=== PATIENT | female | born 1975 ===

== ENCOUNTER 2020-08-27 12:35 | Emergency (ER) | payer BC, SELFPAY ==
[2020-08-27] VITALS (30 sets, daily range): BP systolic 108–131; BP diastolic 70–95; PULSE 57–77; RESP 11–28; TEMP 37.1; O2SAT 98–100
[2020-08-27] MEDS: Ketorolac 30 MG/ML VIAL IVP (13:00)
[2020-08-27] MEDS: fentaNYL 100 MCG/2 ML VIAL IVP (13:00)
--- NOTE | 2020-08-27 13:00 | DI.RAD_ITS ---
EXAM: XR SHOULDER LT COMPLETE 2+V CLINICAL HISTORY: injury. TECHNIQUE: 2D digital imaging was performed. COMPARISON: No exams were available for comparison FINDINGS: BONES: No acute fracture is present. No bony destructive lesion is seen. JOINTS: There is a left shoulder anterior dislocation. SOFT TISSUE: Normal. IMPRESSION: Anterior dislocation of the left shoulder. No fracture is identified. DATA REPOSITORY: RADIATION DOSE DELIVERED:
--- NOTE | 2020-08-27 13:01 | ED.GENADUL_ITS ---
Discharge Plan Disposition Patient Disposition: HOME Condition: Stable Discharge Details Clinical Impression: Closed dislocation of left shoulder Primary Care Provider: Unknown,Unknown ED Provider: Alfredo Ramos Home Meds and New Rx's Prescriptions: Continued norethindrone (contraceptive) 0.35 mg Tablet 0.35 mg PO DAILY RF: 0 Discharge Instructions Instructions: Shoulder Dislocation (ED), Shoulder Immobilizer (ED) Additional Instructions: Please take ibuprofen over the counter. Take 600mg by mouth every 6 hours as needed for pain. Please take acetaminophen (tylenol) - 650mg every 6 hours by mouth as needed for pain. Use left shoulder sling to protect her shoulder and allow it to heal. Please follow-up with your product support specialist. Call on Saturday to arrange fol low-up appointment. Please contact your primary care physician to arrange follow-up. Return to the ER for any worsening or new concerning symptoms. Discharge Data Discharge Date/Time-TO BE ENTERED AT DEPARTURE: 08/27/20 15:00 Medical Decision Making 1312??45-year-old female here visiting from [place], arrived yesterday, fell while skiing and injured her left shoulder. She has deformity consistent with shoulder dislocation. Neurovascular intact distally. No head injury and no neck pain or tenderness. Lungs clear to auscultation and normal heart sounds. Abdominal exam benign. Discussed treatment options with the patient and she would prefer to proceed with procedural sedation for shoulder joint reduction. Patient is in significant discomfort I will give Toradol and fentanyl IV at this time. Plan for sedation with propofol for joint reduction. 14:10 --patient provided verbal informed consent to proceed with procedural sedation and left shoulder dislocation relocation. Patient was sedated without complication and joint successfully reduced. Patient remained hemodynamically stable and had normal oxygenation and end-tidal CO2 during entire procedure. HPI General Mode of arrival: ambulatory . Date/Time Provider Initiated Documentation: 08/27/20 12:42 . Limitations to Documentation: no limitations . Information obtained by: patient . HPI Narrative: 45-year-old female presents with chief complaint of left shoulder pain. Patient notes that she was skiing and fell and landed on her left shoulder. This occurred around 11 AM. She has had persistent constant severe pain since the fall. She notes any movement of the left arm worsens pain. No associated numbness or tingling. No other injury. She not hit her head and has no neck or back pain. No chest pain or abdominal pain. Related Data Home Medications Medication Instructions Recorded Confirmed norethindrone (contraceptive) 0.35 mg PO DAILY 08/27/20 08/27/20 Allergies Allergy/AdvReac Type Severity Reaction Status Date / Time Penicillins Allergy Unverified 08/27/20 12:55 General Stated Complaint: Orthopedic ALBERT: 2 Review of Systems All systems reviewed & are unremarkable except as noted in HPI and below Cardiovascular Cardiovascular: Denies dyspnea Respiratory Respiratory: Denies dyspnea Musculoskeletal Musculoskeletal: Reports as per HPI [facility] Social History Smoking/Tobacco Use Status: Never Smoking risk assessment performed?: Yes Alcohol Intake: current Alcohol Intake frequency: a few times a week Alcohol type: beer Drug use: Never Substance use type: does not use Do you feel safe at home: Yes Do you feel safe in your relationship?: Yes Exam Const General: cooperative and uncomfortable HENMT Head: normocephalic and atraumatic Mouth: moist mucous membranes Eyes EOM: EOM intact bilaterally Neck Neck: trachea midline and supple Resp Auscultation: clear to auscultation bilaterally, no rales, no rhonchi and no wheezes Cardio Rate: regular rate and not tachycardic Rhythm: regular rhythm GI Palpation: soft, not firm, no guarding, no masses, not rigid and nontender Back/Spine/Pelvis Cervical Spine: cervical ROM normal, No cervical spinal tenderness and No step off deformity Thoracic/Lumbar Spine: No thoracic spinal tenderness and No lumbar spinal tenderness Skin General skin exam: no rashes or lesions noted Neuro General: patient alert, patient awake, patient oriented x3 and tone normal Extrem Left upper extremity: shoulder/upper arm Details: tenderness, abnormal ROM and deformity and hand Details: neuromotor exam normal, neurosensory exam normal and vascular exam Details: radial pulse present Details: 2+ Psych Appearance: grossly normal Mental Status: mental status grossly normal Speech and Movement: speech and movement normal Course Vital Signs Vital signs: Vital Signs Temperature 37.1 C 08/27/20 12:51 Pulse 66 08/27/20 12:51 Respiratory Rate 20 08/27/20 12:51 Blood Pressure 108/74 08/27/20 12:51 Pulse Oximetry 99 08/27/20 12:51 Temperature 37.1 C 08/27/20 12:51 Temperature Source Temporal Artery Scan 08/27/20 12:51 Pulse 66 08/27/20 12:51 Respiratory Rate 20 08/27/20 12:51 Respiratory Effort Non-Labored 08/27/20 12:57 Blood Pressure 108/74 08/27/20 12:51 Blood Pressure Position Sitting 08/27/20 12:51 Pulse Oximetry 99 08/27/20 12:51 Oxygen Delivery Method Room Air 08/27/20 12:51 Oxygen Flow Rate 0 08/27/20 12:51 Pain Level 7 08/27/20 12:51 Procedures Procedural Sedation Indication: fracture/dislocation reduction Presedation Evaluation: Healthy ASA Class: I Time of Last PO Intake: 08:00 Preparation: cardiac monitor technician applied, pulse oximeter, capnometry used, supplemental O2 applied, reversal agents at bedside and suction/airway equipment at bedside IV Propofol dose (mg): 75 Patient Tolerated Procedure: well Complications: none Additional Comments: Patient tolerated well without complication and remained hemodynamically stable for the entire procedure.
--- NOTE | 2020-08-27 13:30 | DI.RAD_ITS ---
EXAM: XR SHOULDER LT COMP POST REDUC CLINICAL HISTORY: post reduction. TECHNIQUE: 2D digital imaging was performed. COMPARISON: CR,XR XR SHOULDER LT COMPLETE 2+V from 08/27/2020 FINDINGS: BONES: No acute fracture is present. No bony destructive lesion is seen. JOINTS: No dislocation present. SOFT TISSUE: Normal. IMPRESSION: No acute fracture or dislocation of the left shoulder following reduction. DATA REPOSITORY: RADIATION DOSE DELIVERED:
[2020-08-27] MEDS: Propofol 200 MG/20 ML VIAL 50 MG IVP ×2 (13:36→13:38)
--- NOTE | 2020-08-27 13:48 | DI.VRAD_ITS ---
PROCEDURE INFORMATION: Exam: XR Left Shoulder Exam date and time: 08/27/2020 1:24 PM Age: 45 years old Clinical indication: Other: Skiing injury TECHNIQUE: Imaging protocol: XR Left shoulder. Views: 2 or more views. COMPARISON: No relevant prior studies available. FINDINGS: Bones/joints: There is inferior dislocation of the humeral head relative to the glenoid. No definite fracture deformity. The AC joint is maintained. The underlying ribs are intact. The serpiginous lucency through the bony glenoid does not seem to violate the cortices with confidence. Soft tissues: No calcific tendinitis. IMPRESSION: Dislocation. Dictated and Authenticated by: Crow Bowie MD. Ordering:KALLIE Fuentes MD
--- NOTE | 2020-08-27 13:53 | W.ED.PROC ---
Procedures Orthopedic Joint Reduction Joint #1: Time Out Performed: Yes Side: left Joint Reduction Location: shoulder Analgesia: procedural sedation Shoulder Technique Used (if applicable): external rotation Post-reduction neuro exam: intact Post-reduction vascular: intact Post Reduction X-Ray Obtained: Yes Post Reduction X-Ray Results: reduced Splint Applied: Yes Patient Tolerated Procedure: well Additional Comments: n/v intact pre and post procedure
--- NOTE | 2020-08-27 14:11 | RESPIRATORY ---
08/27/20- Pt here for a Left shoulder reduction after a fall while skiing. BVM & Suction set up at bedside. 1332 Pre- 74 HR, 100%, 24 RR, 31 ETCO2 31mmhg, 160/90 on 2 LPM ETCO2 NC. 1344 65 HR, 100%, 22 HR, ETCO2 31mmhg, 118/75 on 2 LPM ETCO2 NC. 1350 Post 64 HR, 100%, 18 RR, ETCO2 33mm hg , 120/87. Pt is awake, alert and conversing .
--- NOTE | 2020-08-27 14:18 | DI.VRAD_ITS ---
PROCEDURE INFORMATION: Exam: XR Left Shoulder Exam date and time: 08/27/2020 1:47 PM Age: 45 years old Clinical indication: Other: Post reduction TECHNIQUE: Imaging protocol: XR Left shoulder. Views: 2 or more views. COMPARISON: CR XR SHOULDER LT COMPLETE 2+V 08/27/2020 1:03 PM FINDINGS: Bones/joints: Interval reduction of the dislocation. No acute fracture. Limited degenerative changes at the AC joint. Soft tissues: Normal. IMPRESSION: Post reduction study. Dictated and Authenticated by: Crow Bowie MD. Ordering:NINFA Murcia MD
== END 2020-08-27 15:00 | disposition home or self-care (01) ==
PROVIDERS: Emergency Provider Student in an Organized Health Care Education/Training Program
DX: S43.015A Anterior dislocation of left humerus, initial encounter (principal); V00.321A Fall from snow-skis, initial encounter; Y93.23 Activity, snow (alpine) (downhill) skiing, snowboarding, sledding, tobogganing and snow tubing
CPT/HCPCS: 23650; 73030; 96374; 96375; J1885; J2704; J3010

== ENCOUNTER 2021-09-24 11:03 | Emergency (ER) | payer BC, SELFPAY ==
[2021-09-24 11:15] VITALS: BP 91/49; PULSE 66; RESP 20; TEMP 36.6; O2SAT 100
--- NOTE | 2021-09-24 11:15 | DI.RAD_ITS ---
Exam(s) XR SHOULDER LT COMPLETE 2+V EXAM: XR SHOULDER LT COMPLETE 2+V CLINICAL HISTORY: fall/ possible dislocation. TECHNIQUE: 2D digital imaging was performed of the left shoulder. Three images were obtained. AP a nd Y views were obtained. COMPARISON: CR,XR XR SHOULDER LT COMPLETE 2+V from 08/27/2020 FINDINGS: BONES: No acute fracture is present. No bony destructive lesion is seen. JOINTS: There is an anterior left shoulder dislocation. SOFT TISSUE: Normal. IMPRESSION: Anterior dislocation of the left shoulder. DATA REPOSITORY: RADIATION DOSE DELIVERED:
[2021-09-24] MEDS: Ondansetron 4 MG/2 ML VIAL IVP (11:37)
[2021-09-24] MEDS: Normal Saline 500 ML IV (11:37)
[2021-09-24] MEDS: HYDROmorphone 2 MG/ML VIAL 0.5 MG IVP (11:45)
--- NOTE | 2021-09-24 11:58 | DI.VRAD_ITS ---
PROCEDURE INFORMATION: Exam: XR Left Shoulder Exam date and time: 09/24/2021 11:30 AM Age: 46 years old Clinical indication: Other: Fall, possible dislocation TECHNIQUE: Imaging protocol: XR Left shoulder. Views: 2 or more views. COMPARISON: CR XR SHOULDER LT COMP POST REDUC 08/27/2020 1:42 PM FINDINGS: Bones/joints: Anterior inferior dislocation of the left shoulder. No obvious fracture. Soft tissues: Normal. IMPRESSION: Anterior inferior dislocation of the left shoulder. Dictated and Authenticated by: Jose Cox MD. Ordering:AMERICA Bhakta MD
--- NOTE | 2021-09-24 12:15 | DI.RAD_ITS ---
Exam(s) XR SHOULDER LT COMPLETE 2+V EXAM: XR SHOULDER LT COMPLETE 2+V CLINICAL HISTORY: post reduction. TECHNIQUE: 2D digital imaging was performed of the left shoulder. Four images were obtained. AP, G rashey, Y-view and axillary views were obtained. COMPARISON: CR,XR XR SHOULDER LT COMPLETE 2+V from 09/24/2021 FINDINGS: BONES: No acute fracture is present. No bony destructive lesion is seen. JOINTS: No dislocation present. SOFT TISSUE: Normal. IMPRESSION: Unremarkable radiographs of the left shoulder. Successful reduction of the previous left shoulder dis location. DATA REPOSITORY: RADIATION DOSE DELIVERED:
--- NOTE | 2021-09-24 13:00 | DI.VRAD_ITS ---
PROCEDURE INFORMATION: Exam: XR Left Shoulder Exam date and time: 09/24/2021 12:21 PM Age: 46 years old Clinical indication: Other: Shoulder dislocation, post reduction images TECHNIQUE: Imaging protocol: XR Left shoulder. Views: 2 or more views. COMPARISON: CR XR SHOULDER LT COMPLETE 2+V 09/24/2021 11:32 AM FINDINGS: Bones/joints: Normal. Soft tissues: Normal. IMPRESSION: No acute findings. Dictated and Authenticated by: Jose Cox MD. Ordering:AMERICA Bhakta MD
--- NOTE | 2021-09-24 13:13 | ED.GENADUL_ITS ---
Discharge Plan Disposition Patient Disposition: HOME Condition: Improving Discharge Details Clinical Impression: Anterior dislocation of left shoulder Primary Care Provider: Unknown,Unknown ED Provider: Yony Alberts Home Meds and New Rx's Prescriptions: Continued norethindrone (contraceptive) 0.35 mg Tablet 0.35 mg PO DAILY 0RF Discharge Instructions Instructions: Shoulder Dislocation (ED) Additional Instructions: You may take [id number] pain medication as needed and keep arm in sling preferably until able to follow-up with orthopedics unless this is greater than 4 days. If you develop any new or worsening symptoms or have further concerns feel free to return to the emergency department for reassessment. Discharge Data Discharge Date/Time-TO BE ENTERED AT DEPARTURE: 09/24/21 13:23 Medical Decision Making Patient presenting to the emergency department with chief complaint of fall while skiing dislocating left shoulder. Patient has dislocated left shoulder previously due to similar type injury. Physical exam shows an obvious dislocation of the left shoulder which on physical exam appears anterior. Patient given analgesic. imaging was performed and shows no obvious fracture and confirm suspicion of anterior dislocation. Discussed different techniques with patient patient was agreeable to attempting fares technique initially due to no need of procedural sedation. This technique was performed and successfully reduced left shoulder(with radiographic confirmation) with patient having no complications and no significant pain during procedure was noted. Patient placed in shoulder immobilizer and recommended to follow-up with orthopedics when she returns home. After discussion of diagnosis and plan of care patient has no further needs, questions, or concerns and states clear understanding to return to the emergency department for any worsening symptoms. Medical Records Medical records reviewed: Yes I reviewed the patient's medical records. Imaging Data Radiologic Study: Attestation: I personally reviewed and interpreted this imaging study as follows: Imaging: X-Ray My impression: Anterior dislocation without obvious fracture HPI General Mode of arrival: ambulatory . Date/Time Provider Initiated Documentation: 09/24/21 11:06 . Limitations to Documentation: no limitations . Information obtained by: patient and old records reviewed . History of Present Illness 46 year old F presents to the emergency department with the chief complaint of ski fall and left shoulder dislocation , described as moderate and similar to prior episodes, with intensity rated at 8. Quality is described as sharp, and is localized to the left and upper extremity. Patient reports no radiation. Patient started experiencing this hour(s) (1) and it has been constant. improves with Immobilization improves symptom(s), Movement worsens symptoms . Patient notes no other symptoms.. Patient did receive the following treatments prior to arrival, none Related Data Home Medications Medication Instructions Recorded Confirmed norethindrone (contraceptive) 0.35 0.35 mg PO DAILY 08/27/20 09/24/21 mg tablet Allergies Allergy/AdvReac Type Severity Reaction Status Date / Time Penicillins Allergy Unverified 09/24/21 11:21 General Stated Complaint: Orthopedic ALBERT: 3 Review of Systems Cardiovascular Cardiovascular: Denies chest pain, Denies syncope and Denies dyspnea Respiratory Respiratory: Denies pain on inspiration and Denies dyspnea Musculoskeletal Musculoskeletal: Reports as per HPI, Reports limited range of motion, Denies numbness and Reports tingling Integumentary/Breasts Skin/Breast: Denies rash, Denies sores and Denies wounds Neurologic Neurologic: Denies syncope, Denies numbness and Reports tingling PFSH All Active Problems (Updated 09/24/21 @ 13:13 by Yony Alberts NP) Anterior dislocation of left shoulder (Acute) Social History Smoking/Tobacco Use Status: Never Smoking risk assessment performed?: Yes Alcohol Intake: current Alcohol Intake frequency: a few times a week Alcohol type: beer Drug use: Never Substance use type: does not use Do you feel safe at home: Yes Do you feel safe in your relationship?: Yes Exam Const General: cooperative, no acute distress and not ill appearing Orientation: alert, awake and oriented x3 HENMT Mouth: moist mucous membranes Resp Effort & Inspection: normal respiratory effort, able to speak in complete sentences and no respiratory distress Auscultation: clear to auscultation bilaterally Cardio Rate: regular rate Rhythm: regular rhythm Heart Sounds: S1 normal and S2 normal Pulses: radial pulses present Skin General skin exam: no rashes or lesions noted Neuro General: patient alert, patient awake and patient oriented x3 Sensory Exam: no sensory deficits noted Extrem General: normal exam except as noted Left upper extremity: shoulder/upper arm Details: abnormal to inspection Details: obvious dislocation and abnormal ROM Details: held in an abnormal fashion Details: in ADduction and in internal rotation, elbow/forearm Details: normal to inspection and normal ROM; Negative for no tenderness, wrist Details: normal to inspection and normal ROM; Negative for no tenderness and hand Details: normal to inspection, normal capillary refill, neuromotor exam normal and neurosensory exam normal Course Vital Signs Vital signs: Vital Signs Temperature 36.6 C 09/24/21 11:15 Pulse 66 09/24/21 11:15 Respiratory Rate 20 09/24/21 11:15 Blood Pressure 91/49 L 09/24/21 11:15 Pulse Oximetry 100 09/24/21 11:15 Temperature 36.6 C 09/24/21 11:15 Temperature Source Temporal Artery Scan 09/24/21 11:15 Pulse 66 09/24/21 11:15 Respiratory Rate 20 09/24/21 11:15 Respiratory Effort Non-Labored 09/24/21 11:19 Blood Pressure 91/49 L 09/24/21 11:15 Blood Pressure Position Sitting 09/24/21 11:15 Pulse Oximetry 100 09/24/21 11:15 Oxygen Delivery Method Room Air 09/24/21 11:15 Oxygen Flow Rate 0 09/24/21 11:15 Pain Level 8 09/24/21 11:45 Procedures Orthopedic Joint Reduction Joint #1: Time Out Performed: Yes Side: left Joint Reduction Location: shoulder Analgesia: none Shoulder Technique Used (if applicable): other (Pascual) Post-reduction neuro exam: intact Post-reduction vascular: intact Post Reduction X-Ray Obtained: Yes Post Reduction X-Ray Results: reduced Splint Applied: Yes Patient Tolerated Procedure: well and no complications PAWSS Have you Been Recently Intoxicated or Drunk Within the Last 30 days?: No Have you Ever Experienced Previous Episodes of Alcohol Withdrawal?: No Have you ever Experienced Withdrawal Seizures?: No Have you ever Experienced Delirium Tremens(DT)s?: No Have you ever undergone Alcohol Rehabilitation Treatment (i.e, inpt ot outpatient treatment programs)?: No Have you ever Experienced Blackouts?: No Have you ever Combined Alcohol with other Downers within the last 90 days?: No Have you ever Combined Alcohol with any other Substance of Abuse during the last 90 days?: No Positive Blood Alcohol level on Presentation? [PCS.BAL]: No Evidence of Increased Autonomic Activity (i.e. HR>120, tremor, sweating, yesy tation, nausea)?: No Result: 0
== END 2021-09-24 13:23 | disposition home or self-care (01) ==
PROVIDERS: Emergency Provider Nurse Practitioner Family
DX: S43.085A Other dislocation of left shoulder joint, initial encounter (principal); V00.321A Fall from snow-skis, initial encounter
CPT/HCPCS: 23650; 96361; 96374; 96375; 73030; J2405